=== PATIENT | female | born 1980 | race Hispanic/Latino ===

== ENCOUNTER 2021-02-23 08:49 | Emergency (ER) | payer SELFPAY ==
[2021-02-23] MEDS ORDERED: Lidocaine 1% w/Epinephrine 1:100K 20 ML VIAL ONE (10:20)
== END 2021-02-23 11:03 | disposition home or self-care (01) ==
LOC: CSHERS 08:49
DX: L72.3 Sebaceous cyst (principal); E11.9 Type 2 diabetes mellitus without complications; D64.9 Anemia, unspecified; I10 Essential (primary) hypertension; Z79.84 Long term (current) use of oral hypoglycemic drugs; Z79.899 Other long term (current) drug therapy
CPT/HCPCS: 10060

== ENCOUNTER 2024-01-18 09:07 | Emergency (ER) | payer SELFPAY | END 2024-01-18 10:40 | disposition home or self-care (01) | LOC: CSHERS 09:07 | DX: J30.9 Allergic rhinitis, unspecified (principal); I10 Essential (primary) hypertension; E11.9 Type 2 diabetes mellitus without complications | CPT/HCPCS: 99282 ==

== ENCOUNTER 2024-12-07 16:58 | Emergency (ER) | payer SELFPAY ==
[2024-12-07] MEDS ORDERED: Fluorescein Opthalmic Strip ONE (18:29)
[2024-12-07] MEDS ORDERED: Proparacaine 0.5% Opth 15 ML BOT ONE (18:30)
== END 2024-12-07 19:00 | disposition home or self-care (01) ==
LOC: CSHERS 16:58
DX: H57.11 Ocular pain, right eye (principal); Z55.6 Problems related to health literacy; E11.9 Type 2 diabetes mellitus without complications; I10 Essential (primary) hypertension